=== PATIENT | male | born 1955 | race Caucasian/White ===

== ENCOUNTER → 2023-12-07 13:04 | Outpatient (CLI) | payer BC, SELFPAY | PROVIDERS: PCP Physician Assistant; Visit Provider Physician Assistant | DX: J02.9 Acute pharyngitis, unspecified (principal) | CPT/HCPCS: 87070 ==

== ENCOUNTER 2023-12-18 03:51 | Inpatient (IN) | payer BC, SELFPAY ==
[2023-12-18] VITALS (27 sets, daily range): BP systolic 114–174; BP diastolic 72–98; PULSE 59–89; RESP 15–18; TEMP 36.6; O2SAT 89–100; BMI 29.8
--- NOTE | 2023-12-18 03:58 | ED.GENADULT ---
HPI - General Adult <Ramon Escobar MD - Last Filed: 12/19/23 02:48> General Chief complaint: Altered Mental Status Stated complaint: AMS Time Seen by Provider: 12/18/23 03:55 History of Present Illness HPI narrative: 68-year-old male driving slowly, was trailed by police, eventually was stopped, seemed confused to Police, Breathalyzer negative, EMS called, transferred here for further evaluation of confusion. Patient denies drug or alcohol use. Patient states that he has been up since 4:00 a.m. yesterday working on his computer (over 24 hours), and then was driving, got disoriented. Denies similar symptoms before. No new medications, no change in medications. No shaking seizure activity, no incontinence of urine or stool. No focal weakness to face arm or leg. Numbness or tingling symptoms. No visual complaints. No pain to head, neck, chest, abdomen and pelvis, upper extremities, lower extremities. Related Data Home Medications Medication Instructions Recorded Confirmed atenolol 25 mg tablet 25 mg PO DAILY 12/07/23 12/18/23 atorvastatin 80 mg tablet 80 mg PO DAILY 12/07/23 12/18/23 bupropion HCl 150 mg 24 hr tablet, 150 mg PO QAM 12/07/23 12/18/23 extended release chlorthalidone 25 mg tablet 25 mg PO DAILY 12/07/23 12/18/23 citalopram 20 mg tablet 20 mg PO DAILY 12/07/23 12/18/23 lisinopril 40 mg tablet 40 mg PO DAILY 12/07/23 12/18/23 pramipexole 1 mg tablet 1 mg PO BEDTIME 12/07/23 12/18/23 Previous Rx's Medication Instructions Recorded valacyclovir 1 gram tablet 1,000 mg PO TID 10 days #30 tabs 12/20/23 Allergies Allergy/AdvReac Type Severity Reaction Status Date / Time No Known Drug Allergies Allergy Unverified 12/07/23 12:46 Review of Systems <Ramon Escobar MD - Last Filed: 12/19/23 02:48> Review of Systems Narrative: per HPI Patient History <Ramon Escobar MD - Last Filed: 12/19/23 02:48> Social History household members: spouse Smoking Status: Never smoker alcohol intake: never Smoking Status: Never smoker Exam <Ramon Escobar MD - Last Filed: 12/19/23 02:48> Initial Vital Signs Initial Vital Signs: Vital Signs Temperature 97.9 F 12/18/23 03:55 Pulse Rate 66 12/18/23 03:55 Respiratory Rate 15 12/18/23 03:55 Blood Pressure 151/86 H 12/18/23 03:55 Pulse Oximetry 100 12/18/23 03:55 Oxygen Delivery Method Room Air 12/18/23 03:55 Const General: cooperative HENCA Head: normocephalic and atraumatic Ears: TM's normal bilaterally Face and sinus: face symmetric Mouth: moist mucous membranes Eyes Eyelids: eyelids normal Conjunctivae: conjunctivae normal Sclera: sclerae normal Pupils: PERRL EOM: EOM intact bilaterally Neck Neck: normal visual inspection Chest Chest: normal inspection of the chest Resp Effort & Inspection: normal respiratory effort, able to speak in complete sentences, no respiratory distress and no use of accessory muscles Auscultation: clear to auscultation bilaterally, no rales, no rhonchi and no wheezes Cardio Rate: regular rate Rhythm: regular rhythm Heart Sounds: no click, no gallops, no murmurs and no rubs Pulses: normal peripheral pulses GI Inspection: non-distended Palpation: soft, No guarding and No tender Back/Spine/Pelvis Back: No CVA tenderness Cervical Spine: No pain with cervical ROM Skin General: no rashes or lesions noted, No jaundice and No petechiae Neuro General: patient alert, gait normal and no focal motor deficits Speech: speech normal Extrem General: no pedal edema Psych Appearance: well kempt Mental Status: mental status grossly normal Attitude: cooperative <Arlin Henley DO - Last Filed: 12/24/23 09:22> Initial Vital Signs Initial Vital Signs: Vital Signs Temperature 97.9 F 12/18/23 03:55 Pulse Rate 12/18/23 03:55 Respiratory Rate 12/18/23 03:55 Blood Pressure 151/86 H 12/18/23 03:55 Pulse Oximetry 100 12/18/23 03:55 Oxygen Delivery Method Room Air 12/18/23 03:55 Procedures <Arlin Henley DO - Last Filed: 12/24/23 09:22> Lumbar Puncture Time of procedure: 11:25 Time Out Performed: Yes Patient Position: upright Skin Prep: 0.5% Chlorhexidine/Alcohol Local Anesthetic: lidocaine 2% Amount of anesthesia used (mL): 10 Spinal Needle Gauge: 22G Interspace Used: L4-L5 Complications: Need to have other Practitioner Attempt and unable to obtain CSF Course <Ramon Escobar MD - Last Filed: 12/19/23 02:48> Orders Ordered: Discontinued Medications Acetaminophen (Acetaminophen 325 Mg Tablet) 650 mg PO Q6H PRN PRN Reason: Fever/Mild Pain (1-3) Atenolol (Atenolol 25 Mg Tablet) 25 mg PO DAILY [facility] Last Admin: 12/20/23 08:53 Dose: 25 mg Documented By: Admin: 12/19/23 09:54 Dose: 25 mg Documented By: MM Atorvastatin Calcium (Atorvastatin 20 Mg Tablet) 80 mg PO DAILY [facility] Last Admin: 12/20/23 08:53 Dose: 80 mg Documented By: Admin: 12/19/23 09:55 Dose: 80 mg Documented By: MM Bupropion HCl (Bupropion Xl 150 Mg Tab) 150 mg PO DAILY [facility] Last Admin: 12/20/23 08:53 Dose: 150 mg Documented By: Admin: 12/19/23 09:55 Dose: 150 mg Documented By: MM Chlorthalidone (Chlorthalidone 25 Mg Tablet) 25 mg PO DAILY [facility] Last Admin: 12/20/23 08:53 Dose: 25 mg Documented By: Admin: 12/19/23 09:55 Dose: 25 mg Documented By: MM Citalopram Hydrobromide (Citalopram 10 Mg Tablet) 20 mg PO DAILY [facility] Last Admin: 12/20/23 08:53 Dose: 20 mg Documented By: Admin: 12/19/23 09:55 Dose: 20 mg Documented By: MM Dexamethasone (Dexamethasone 10 Mg/Ml Vial) 10 mg IV NOW ONE Stop: 12/18/23 11:58 Last Admin: 12/18/23 13:12 Dose: 10 mg Documented By: Heparin Sodium (Porcine) (Heparin 5,000 Unit/Ml Vial) 5,000 unit SUBCUT BID [facility] Last Admin: 12/20/23 08:53 Dose: 5,000 unit Documented By: Admin: 12/19/23 20:30 Dose: 5,000 unit Documented By: Admin: 12/19/23 08:30 Dose: 5,000 unit Documented By: Admin: 12/18/23 21:22 Dose: 5,000 unit Documented By: SRIDHAR Sodium Chloride (Normal Saline 0.9%) 1,000 mls @ 150 mls/hr IV CONT IMAN Last Infusion: 12/18/23 05:22 Dose: Infused Documented By: Infusion: 12/18/23 05:03 Dose: 999 mls/hr Documented By: Admin: 12/18/23 04:20 Dose: 150 mls/hr Documented By: AB Acyclovir 1,000 mg/ Dextrose 250 mls @ 250 mls/hr IV NOW ONE Stop: 12/18/23 11:58 Last Infusion: 12/18/23 14:49 Dose: Infused Documented By: Admin: 12/18/23 13:12 Dose: 250 mls/hr Documented By: Ceftriaxone Sodium 2,000 mg/ (Sodium Chloride) 100 mls @ 200 mls/hr IV Q24H IMAN Last Infusion: 12/18/23 15:17 Dose: Infused Documented By: Admin: 12/18/23 14:54 Dose: 200 mls/hr Documented By: Vancomycin HCl/Dextrose (Vancomycin) 2,000 mg in 400 mls @ 200 mls/hr IV NOW ONE Stop: 12/18/23 14:01 Last Admin: 12/18/23 15:18 Dose: Not Given Documented By: Ampicillin Sodium 2,000 mg/ (Sodium Chloride) 100 mls @ 200 mls/hr IV NOW ONE Stop: 12/18/23 11:58 Last Admin: 12/18/23 15:18 Dose: Not Given Documented By: Sodium Chloride (Normal Saline 0.9%) 1,000 mls @ 100 mls/hr IV CONT IMAN Last Admin: 12/20/23 00:23 Dose: 100 mls/hr Documented By: Infusion: 12/20/23 00:23 Dose: Infused Documented By: Admin: 12/19/23 12:06 Dose: 100 mls/hr Documented By: Infusion: 12/19/23 10:26 Dose: Infused Documented By: Admin: 12/19/23 00:26 Dose: 100 mls/hr Documented By: Infusion: 12/19/23 00:26 Dose: Infused Documented By: Admin: 12/18/23 14:54 Dose: 100 mls/hr Documented By: Acyclovir 1,000 mg/ Dextrose 250 mls @ 250 mls/hr IV Q8H [facility] Last Infusion: 12/20/23 06:35 Dose: Infused Documented By: Admin: 12/20/23 04:54 Dose: 250 mls/hr Documented By: Infusion: 12/19/23 21:35 Dose: Infused Documented By: Admin: 12/19/23 20:30 Dose: 250 mls/hr Documented By: Infusion: 12/19/23 13:05 Dose: Infused Documented By: Admin: 12/19/23 12:05 Dose: 250 mls/hr Documented By: Infusion: 12/19/23 08:31 Dose: Infused Documented By: Admin: 12/19/23 05:17 Dose: 250 mls/hr Documented By: Infusion: 12/18/23 22:22 Dose: Infused Documented By: Admin: 12/18/23 21:22 Dose: 250 mls/hr Documented By: SRIDHAR Lisinopril (Lisinopril 20 Mg Tablet) 40 mg PO DAILY [facility] Last Admin: 12/20/23 08:53 Dose: 40 mg Documented By: Admin: 12/19/23 09:55 Dose: 40 mg Documented By: SIVA Lorazepam (Lorazepam 2 Mg/Ml Inj) 0.5 mg IV NOW ONE Stop: 12/18/23 09:19 Last Admin: 12/18/23 09:24 Dose: 0.5 mg Documented By: ZENAIDA Naloxone HCl (Naloxone 0.4 Mg/Ml Vial) 0.2 mg IV Q2MIN PRN PRN Reason: Opiate Reversal Non-Formulary Medication (Pramipexole) 1 mg PO BEDTIME [facility] Potassium Chloride (Potassium Chloride 20 Meq/15 Ml Udc) 40 meq PO NOW ONE Stop: 12/18/23 05:34 Last Admin: 12/18/23 06:39 Dose: 40 meq Documented By: ARNALDO Potassium Chloride (Potassium Chloride 20 Meq Tab) 40 meq PO NOW ONE Stop: 12/20/23 10:46 Last Admin: 12/20/23 13:47 Dose: Not Given Documented By: SIVA Pramipexole Dihydrochloride (Pramipexole 0.25 Mg Tablet) 1 mg PO BEDTIME [facility] Pramipexole Dihydrochloride (Pramipexole 0.25 Mg Tablet) 1 mg PO BEDTIME [facility] Last Admin: 12/19/23 20:31 Dose: 1 mg Documented By: Admin: 12/19/23 00:26 Dose: 1 mg Documented By: SRIDHAR Vital Signs Vital signs: Vital Signs - 8 hr 12/18/23 08:57 12/18/23 09:00 12/18/23 09:44 Pulse Rate 71 71 Respiratory Rate Blood Pressure Pulse Oximetry 92 99 95 Oxygen Delivery Method 12/18/23 09:45 12/18/23 09:45 12/18/23 10:03 Pulse Rate 64 73 Respiratory Rate 18 Blood Pressure 133/93 H 137/77 Pulse Oximetry 100 97 Oxygen Delivery Method Room Air <Arlin Henley, DO - Last Filed: 12/24/23 09:22> Orders Ordered: Discontinued Medications Acetaminophen (Acetaminophen 325 Mg Tablet) 650 mg PO Q6H PRN PRN Reason: Fever/Mild Pain (1-3) Atenolol (Atenolol 25 Mg Tablet) 25 mg PO DAILY [facility] Last Admin: 12/20/23 08:53 Dose: 25 mg Documented By: Admin: 12/19/23 09:54 Dose: 25 mg Documented By: SIVA Atorvastatin Calcium (Atorvastatin 20 Mg Tablet) 80 mg PO DAILY [facility] Last Admin: 12/20/23 08:53 Dose: 80 mg Documented By: Admin: 12/19/23 09:55 Dose: 80 mg Documented By: MM Bupropion HCl (Bupropion Xl 150 Mg Tab) 150 mg PO DAILY [facility] Last Admin: 12/20/23 08:53 Dose: 150 mg Documented By: Admin: 12/19/23 09:55 Dose: 150 mg Documented By: MM Chlorthalidone (Chlorthalidone 25 Mg Tablet) 25 mg PO DAILY [facility] Last Admin: 12/20/23 08:53 Dose: 25 mg Documented By: Admin: 12/19/23 09:55 Dose: 25 mg Documented By: MM Citalopram Hydrobromide (Citalopram 10 Mg Tablet) 20 mg PO DAILY [facility] Last Admin: 12/20/23 08:53 Dose: 20 mg Documented By: Admin: 12/19/23 09:55 Dose: 20 mg Documented By: MM Dexamethasone (Dexamethasone 10 Mg/Ml Vial) 10 mg IV NOW ONE Stop: 12/18/23 11:58 Last Admin: 12/18/23 13:12 Dose: 10 mg Documented By: Heparin Sodium (Porcine) (Heparin 5,000 Unit/Ml Vial) 5,000 unit SUBCUT BID [facility] Last Admin: 12/20/23 08:53 Dose: 5,000 unit Documented By: Admin: 12/19/23 20:30 Dose: 5,000 unit Documented By: Admin: 12/19/23 08:30 Dose: 5,000 unit Documented By: Admin: 12/18/23 21:22 Dose: 5,000 unit Documented By: SRIDHAR Sodium Chloride (Normal Saline 0.9%) 1,000 mls @ 150 mls/hr IV CONT [facility] Last Infusion: 12/18/23 05:22 Dose: Infused Documented By: Infusion: 12/18/23 05:03 Dose: 999 mls/hr Documented By: Admin: 12/18/23 04:20 Dose: 150 mls/hr Documented By: AB Acyclovir 1,000 mg/ Dextrose 250 mls @ 250 mls/hr IV NOW ONE Stop: 12/18/23 11:58 Last Infusion: 12/18/23 14:49 Dose: Infused Documented By: Admin: 12/18/23 13:12 Dose: 250 mls/hr Documented By: Ceftriaxone Sodium 2,000 mg/ (Sodium Chloride) 100 mls @ 200 mls/hr IV Q24H [facility] Last Infusion: 12/18/23 15:17 Dose: Infused Documented By: Admin: 12/18/23 14:54 Dose: 200 mls/hr Documented By: Vancomycin HCl/Dextrose (Vancomycin) 2,000 mg in 400 mls @ 200 mls/hr IV NOW ONE Stop: 12/18/23 14:01 Last Admin: 12/18/23 15:18 Dose: Not Given Documented By: Ampicillin Sodium 2,000 mg/ (Sodium Chloride) 100 mls @ 200 mls/hr IV NOW ONE Stop: 12/18/23 11:58 Last Admin: 12/18/23 15:18 Dose: Not Given Documented By: Sodium Chloride (Normal Saline 0.9%) 1,000 mls @ 100 mls/hr IV CONT [facility] Last Admin: 12/20/23 00:23 Dose: 100 mls/hr Documented By: Infusion: 12/20/23 00:23 Dose: Infused Documented By: Admin: 12/19/23 12:06 Dose: 100 mls/hr Documented By: Infusion: 12/19/23 10:26 Dose: Infused Documented By: Admin: 12/19/23 00:26 Dose: 100 mls/hr Documented By: Infusion: 12/19/23 00:26 Dose: Infused Documented By: Admin: 12/18/23 14:54 Dose: 100 mls/hr Documented By: Acyclovir 1,000 mg/ Dextrose 250 mls @ 250 mls/hr IV Q8H [facility] Last Infusion: 12/20/23 06:35 Dose: Infused Documented By: Admin: 12/20/23 04:54 Dose: 250 mls/hr Documented By: Infusion: 12/19/23 21:35 Dose: Infused Documented By: Admin: 12/19/23 20:30 Dose: 250 mls/hr Documented By: Infusion: 12/19/23 13:05 Dose: Infused Documented By: Admin: 12/19/23 12:05 Dose: 250 mls/hr Documented By: Infusion: 12/19/23 08:31 Dose: Infused Documented By: Admin: 12/19/23 05:17 Dose: 250 mls/hr Documented By: Infusion: 12/18/23 22:22 Dose: Infused Documented By: Admin: 12/18/23 21:22 Dose: 250 mls/hr Documented By: SRIDHAR Lisinopril (Lisinopril 20 Mg Tablet) 40 mg PO DAILY [facility] Last Admin: 12/20/23 08:53 Dose: 40 mg Documented By: Admin: 12/19/23 09:55 Dose: 40 mg Documented By: SIVA Lorazepam (Lorazepam 2 Mg/Ml Inj) 0.5 mg IV NOW ONE Stop: 12/18/23 09:19 Last Admin: 12/18/23 09:24 Dose: 0.5 mg Documented By: ZENAIDA Naloxone HCl (Naloxone 0.4 Mg/Ml Vial) 0.2 mg IV Q2MIN PRN PRN Reason: Opiate Reversal Non-Formulary Medication (Pramipexole) 1 mg PO BEDTIME [facility] Potassium Chloride (Potassium Chloride 20 Meq/15 Ml Udc) 40 meq PO NOW ONE Stop: 12/18/23 05:34 Last Admin: 12/18/23 06:39 Dose: 40 meq Documented By: KD Potassium Chloride (Potassium Chloride 20 Meq Tab) 40 meq PO NOW ONE Stop: 12/20/23 10:46 Last Admin: 12/20/23 13:47 Dose: Not Given Documented By: MM Pramipexole Dihydrochloride (Pramipexole 0.25 Mg Tablet) 1 mg PO BEDTIME IMAN Pramipexole Dihydrochloride (Pramipexole 0.25 Mg Tablet) 1 mg PO BEDTIME IM[facility] Last Admin: 12/19/23 20:31 Dose: 1 mg Documented By: Admin: 12/19/23 00:26 Dose: 1 mg Documented By: SRIDHAR Vital Signs Vital signs: Vital Signs - 8 hr 12/18/23 08:57 12/18/23 09:00 12/18/23 09:44 Pulse Rate 71 71 Respiratory Rate Blood Pressure Pulse Oximetry 92 99 95 Oxygen Delivery Method 12/18/23 09:45 12/18/23 09:45 12/18/23 10:03 Pulse Rate 64 73 Respiratory Rate 18 Blood Pressure 133/93 H 137/77 Pulse Oximetry 100 97 Oxygen Delivery Method Room Air Medical Decision Making <Ramon Escobar MD - Last Filed: 12/19/23 02:48> Lab Data Lab results reviewed: Yes I reviewed the patient's lab results. 12/20/23 03:56 12/20/23 03:56 Labs: Lab Results 12/18/23 12/18/23 12/18/23 Range/Units 03:47 04:29 04:34 WBC 10.9 (4.5-11.0) X10^3/uL RBC 4.32 L (4.5-5.9) X10^6/uL Hgb 14.3 (13.5-17.5) g/dL Hct 40.4 L (41-53) % MCV 93.6 (80-100) fL MCH 33.2 (26-34) PG MCHC 35.5 (30-36) % RDW 13.3 (11.6-14.8) % Plt Count 390 (150-400) X10^3/uL Neut % (Auto) 78.9 H (50-75) % Lymph % (Auto) 13.3 L (25-40) % [place] % (Auto) 6.9 (3-14) % Eos % (Auto) 0.3 L (2-4) % Baso % (Auto) 0.6 (0-2) % Neut # (Auto) 8600 H (5884-9730) /uL Lymph # (Auto) 1400 (8823-8101) /uL [place] # (Auto) 800 (0-900) /uL Eos # (Auto) 0 (0-450) /uL Baso # (Auto) 100 (0-100) /uL PT 11.7 (9.4-12.5) SECONDS INR 1.0 (0.9-1.3) APTT 35 (25.1-36.5) SECONDS Sodium 133 L (137-145) mmol/L Potassium 3.3 L (3.4-5.1) mmol/L Chloride 98 (98-107) mmol/L Carbon Dioxide 28 (22-32) mmol/L BUN 17 (9-20) mg/dL Creatinine 0.93 (0.66-1.25) mg/dL Estimated GFR > 60 (>60) mL/min BUN/Creatinine Ratio 18.3 (6-22) Glucose 111 H (80-110) mg/dL Lactate 1.0 (0.7-2.1) mmol/L Calcium 9.2 (8.4-10.2) mg/dL Total Bilirubin 1.1 (0.2-1.3) mg/dL AST 53 (17-59) IU/L ALT 51 H (<50) IU/L Alkaline Phosphatase 103 (38-126) U/L Ammonia < 9 L (9-30) umol/L Total Protein 7.8 (6.3-8.2) g/dL Albumin 4.7 (3.5-5.0) g/dL Globulin 3.1 (1.7-4.1) g/dL Albumin/Globulin Ratio 1.5 (1.0-2.8) TSH 6.89 H (0.47-4.68) uIU/mL Free T4 1.08 (0.78-2.19) ng/dL Prolactin 14.7 (3.7-17.9) ng/mL Urine Color Urine Appearance Urine pH (4.5-8.0) Ur Specific [place] (1.000-1.035) Urine Protein (Negative) Urine Glucose (UA) (Negative) g/dL Urine Ketones (NEGATIVE) Urine Occult Blood (Negative) Urine Nitrate (Negative) Urine Bilirubin (NEGATIVE) Urine Urobilinogen (0.2) E.U./dL Ur Leukocyte Esterase (NEGATIVE) Urine RBC (0-5/HPF) Urine WBC (0-5/HPF) Ur Squamous Epith Cells (0-5/HPF) Urine Bacteria (None) Ur Culture Indicated? Vol Urine Centrifuged Salicylates < 1.0 (<20) mg/dL U Opiates 300ng/mL cut (Negative) Ur Oxycodone Screen (Negative) Urine Methadone Screen (Negative) Acetaminophen < 10 (10-30) ug/mL Ur Barbiturates Screen (Negative) U Tricyclic Antidepress (Negative) Ur Phencyclidine Scrn (Negative) Ur Amphetamines Screen (Negative) U Methamphetamines Scrn (Negative) Ur MDMA Scrn (Ecstasy) (Negative) U Benzodiazepines Scrn (Negative) Urine Cocaine Screen (Negative) U Marijuana (THC) Screen (Negative) Urine Specific [place] Ethyl Alcohol < 10 ( - 10) mg/dL Ur Creatinine 12/18/23 12/18/23 Range/Units 05:05 05:05 WBC (4.5-11.0) X10^3/uL RBC (4.5-5.9) X10^6/uL Hgb (13.5-17.5) g/dL Hct (41-53) % MCV (80-100) fL MCH (26-34) PG MCHC (30-36) % RDW (11.6-14.8) % Plt Count (150-400) X10^3/uL Neut % (Auto) (50-75) % Lymph % (Auto) (25-40) % [place] % (Auto) (3-14) % Eos % (Auto) (2-4) % Baso % (Auto) (0-2) % Neut # (Auto) (1392-2081) /uL Lymph # (Auto) (3946-1942) /uL [place] # (Auto) (0-900) /uL Eos # (Auto) (0-450) /uL Baso # (Auto) (0-100) /uL PT (9.4-12.5) SECONDS INR (0.9-1.3) APTT (25.1-36.5) SECONDS Sodium (137-145) mmol/L Potassium (3.4-5.1) mmol/L Chloride (98-107) mmol/L Carbon Dioxide (22-32) mmol/L BUN (9-20) mg/dL Creatinine (0.66-1.25) mg/dL Estimated GFR (>60) mL/min BUN/Creatinine Ratio (6-22) Glucose (80-110) mg/dL Lactate (0.7-2.1) mmol/L Calcium (8.4-10.2) mg/dL Total Bilirubin (0.2-1.3) mg/dL AST (17-59) IU/L ALT (<50) IU/L Alkaline Phosphatase (38-126) U/L Ammonia (9-30) umol/L Total Protein (6.3-8.2) g/dL Albumin (3.5-5.0) g/dL Globulin (1.7-4.1) g/dL Albumin/Globulin Ratio (1.0-2.8) TSH (0.47-4.68) uIU/mL Free T4 (0.78-2.19) ng/dL Prolactin (3.7-17.9) ng/mL Urine Color Yellow Urine Appearance Clear Urine pH 7.5 TNP (4.5-8.0) Ur Specific [place] 1.010 (1.000-1.035) Urine Protein Negative (Negative) Urine Glucose (UA) Negative (Negative) g/dL Urine Ketones Negative (NEGATIVE) Urine Occult Blood Negative (Negative) Urine Nitrate Negative (Negative) Urine Bilirubin Negative (NEGATIVE) Urine Urobilinogen 1.0 (0.2) E.U./dL Ur Leukocyte Esterase Negative (NEGATIVE) Urine RBC None seen (0-5/HPF) Urine WBC None seen (0-5/HPF) Ur Squamous Epith Cells None seen (0-5/HPF) Urine Bacteria None seen (None) Ur Culture Indicated? Cult not indicated Vol Urine Centrifuged 10ml (spun) Salicylates (<20) mg/dL U Opiates 300ng/mL cut Negative (Negative) Ur Oxycodone Screen Negative (Negative) Urine Methadone Screen Negative (Negative) Acetaminophen (10-30) ug/mL Ur Barbiturates Screen Negative (Negative) U Tricyclic Antidepress Negative (Negative) Ur Phencyclidine Scrn Negative (Negative) Ur Amphetamines Screen Negative (Negative) U Methamphetamines Scrn Negative (Negative) Ur MDMA Scrn (Ecstasy) Negative (Negative) U Benzodiazepines Scrn Negative (Negative) Urine Cocaine Screen Negative (Negative) U Marijuana (THC) Screen Negative (Negative) Urine Specific [place] TNP Ethyl Alcohol ( - 10) mg/dL Ur Creatinine TNP MDM Narrative Medical decision making narrative: 68-year-old male had been working on his computer, works from home, since 4:00 a.m. the previous night, up continuously for over 24 hours, apparently had some irregular driving that prompted police to pull him over, Breathalyzer reportedly negative, denied alcohol use, no history of weakness, no seizures, no prior strokes. No PMHx of psychiatric or dementia or substance abuse disorders on triage notes. Studies including CBC, CMP, urinalysis, ethanol level, toxicology screening, UDS, TSH, all negative. CT head study requested. 0540, patient likely might have had altered mental status due to fatigue having been up working for more than [address] head results pending, could consider further workup to include MRI of the brain to look for stroke. He does not want to do this, but he would like to stay for the CT results. In the meantime he will sleep so that if he is discharged he can drive safely to his local home in [place]. No family present in ED. CT head noncontrast. Impressions: ?No acute intracranial findings. ? See tele radiology report Oral potassium taken for low serum potassium, not likely cause of his confusion. Did get some sleep here in the emergency department. Improved, ambulation trial adequate, seems alert. We discussed further imaging MRI of the brain to look for stroke-like symptoms, declined. Symptoms most consistent with extreme fatigue due to continuous working for over 24 hours, as possible cause of his confusion, advised not to have such prolonged times without sleep without break. He seems alert now, wishes to drive himself short distance home in the local [place] area. 0630, patient was not in room but his backpack and keys were in room, and was found to be walking around the [facility] area by security, after nursing reported that he was walking in the adjacent hospital parking area trying to open car doors and had alerted security. He was led back to the emergency department without incident, non combative, does not seem to recall the event. We will obtain CT head and neck vessels, MRI brain without contrast. He is agreeable to doing these additional tests 0700, CTA head and neck vessel study has been performed, results pending. MRI brain noncontrast study to be performed. Signed out to oncoming ED shift physician Dr. Henley 12/18/2023 0756: Dr. Henley patient signed out to myself patient seen and evaluated by myself. Patient's labs reviewed TSH is elevated T4 was added on and is 1.08, no other acute changes lab work that would be clear source for patient's confusion. Patient's head CT was negative. Dr. Escobar had added on a CT angio which had some motion artifact but no clear high-grade stenosis or large vessel was identified there was a possible 4 mm anterior communicating artery aneurysm or infundibulum. Attempting to obtain MR. Patient received fluids 150 mL per hour and potassium placement. Review of chart notes that he had visit for sore throat and was reportedly COVID negative patient was strep negative but was given prescription for amoxicillin and prednisone 10 mg for 5 days. This is fairly low dose known but could conceivably cause altered mental status. No contact information for family noted patient's demographics. Patient does not appear confused but does not appear to have any other acute neurologic changes, he has been afebrile, no signs of sepsis. Patient had reported that he had been up 24 hours on his computer for work to Dr. Escobar. Spoke with patient's brother, he states patient has had 1 prior episode remotely or they thought he had some form of serotonin syndrome or issue with his medications. Patient had thought he had take an extra dose. This was accomplished years ago he was reported to be altered and was admitted for a couple days. Brother states he has otherwise been appropriate last spoke with him a week ago but was texting him as recently as Wednesday and states that is seemed normal. 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 His brother is his main emergency contact, brother lives in [place]. Brain MR has not negative for acute change. Patient did have to receive Ativan on order to receive MRI he kept trying to crawl out of the machine. Spoke with Dr. Pichardo, hospitalist. Asked for LP to evaluate for encephalitis but is happy to accept. Unsuccessful with the initial LP, anesthesia Dr. West contacted to attempt discussed with Dr. Pichardo we will go ahead and cover with acyclovir dexamethasone, meningitis is less likely but we will cover with antibiotic coverage as well. Dr. West was able to obtain sample CSF for CSF studies <Arlin Henley, DO - Last Filed: 12/24/23 09:22> Lab Data Labs: Lab Results 12/18/23 12/18/23 12/18/23 Range/Units 03:47 04:29 04:34 WBC 10.9 (4.5-11.0) X10^3/uL RBC 4.32 L (4.5-5.9) X10^6/uL Hgb 14.3 (13.5-17.5) g/dL Hct 40.4 L (41-53) % MCV 93.6 (80-100) fL MCH 33.2 (26-34) PG MCHC 35.5 (30-36) % RDW 13.3 (11.6-14.8) % Plt Count 390 (150-400) X10^3/uL Neut % (Auto) 78.9 H (50-75) % Lymph % (Auto) 13.3 L (25-40) % [place] % (Auto) 6.9 (3-14) % Eos % (Auto) 0.3 L (2-4) % Baso % (Auto) 0.6 (0-2) % Neut # (Auto) 8600 H (3540-1482) /uL Lymph # (Auto) 1400 (2852-0829) /uL [place] # (Auto) 800 (0-900) /uL Eos # (Auto) 0 (0-450) /uL Baso # (Auto) 100 (0-100) /uL PT 11.7 (9.4-12.5) SECONDS INR 1.0 (0.9-1.3) APTT 35 (25.1-36.5) SECONDS Sodium 133 L (137-145) mmol/L Potassium 3.3 L (3.4-5.1) mmol/L Chloride 98 (98-107) mmol/L Carbon Dioxide 28 (22-32) mmol/L BUN 17 (9-20) mg/dL Creatinine 0.93 (0.66-1.25) mg/dL Estimated GFR > 60 (>60) mL/min BUN/Creatinine Ratio 18.3 (6-22) Glucose 111 H (80-110) mg/dL Lactate 1.0 (0.7-2.1) mmol/L Calcium 9.2 (8.4-10.2) mg/dL Total Bilirubin 1.1 (0.2-1.3) mg/dL AST 53 (17-59) IU/L ALT 51 H (<50) IU/L Alkaline Phosphatase 103 (38-126) U/L Ammonia < 9 L (9-30) umol/L Total Protein 7.8 (6.3-8.2) g/dL Albumin 4.7 (3.5-5.0) g/dL Globulin 3.1 (1.7-4.1) g/dL Albumin/Globulin Ratio 1.5 (1.0-2.8) TSH 6.89 H (0.47-4.68) uIU/mL Free T4 1.08 (0.78-2.19) ng/dL Prolactin 14.7 (3.7-17.9) ng/mL Urine Color Urine Appearance Urine pH (4.5-8.0) Ur Specific [place] (1.000-1.035) Urine Protein (Negative) Urine Glucose (UA) (Negative) g/dL Urine Ketones (NEGATIVE) Urine Occult Blood (Negative) Urine Nitrate (Negative) Urine Bilirubin (NEGATIVE) Urine Urobilinogen (0.2) E.U./dL Ur Leukocyte Esterase (NEGATIVE) Urine RBC (0-5/HPF) Urine WBC (0-5/HPF) Ur Squamous Epith Cells (0-5/HPF) Urine Bacteria (None) Ur Culture Indicated? Vol Urine Centrifuged Salicylates < 1.0 (<20) mg/dL U Opiates 300ng/mL cut (Negative) Ur Oxycodone Screen (Negative) Urine Methadone Screen (Negative) Acetaminophen < 10 (10-30) ug/mL Ur Barbiturates Screen (Negative) U Tricyclic Antidepress (Negative) Ur Phencyclidine Scrn (Negative) Ur Amphetamines Screen (Negative) U Methamphetamines Scrn (Negative) Ur MDMA Scrn (Ecstasy) (Negative) U Benzodiazepines Scrn (Negative) Urine Cocaine Screen (Negative) U Marijuana (THC) Screen (Negative) Urine Specific [place] Ethyl Alcohol < 10 ( - 10) mg/dL Ur Creatinine 12/18/23 12/18/23 Range/Units 05:05 05:05 WBC (4.5-11.0) X10^3/uL RBC (4.5-5.9) X10^6/uL Hgb (13.5-17.5) g/dL Hct (41-53) % MCV (80-100) fL MCH (26-34) PG MCHC (30-36) % RDW (11.6-14.8) % Plt Count (150-400) X10^3/uL Neut % (Auto) (50-75) % Lymph % (Auto) (25-40) % [place] % (Auto) (3-14) % Eos % (Auto) (2-4) % Baso % (Auto) (0-2) % Neut # (Auto) (4377-7587) /uL Lymph # (Auto) (3528-4496) /uL [place] # (Auto) (0-900) /uL Eos # (Auto) (0-450) /uL Baso # (Auto) (0-100) /uL PT (9.4-12.5) SECONDS INR (0.9-1.3) APTT (25.1-36.5) SECONDS Sodium (137-145) mmol/L Potassium (3.4-5.1) mmol/L Chloride (98-107) mmol/L Carbon Dioxide (22-32) mmol/L BUN (9-20) mg/dL Creatinine (0.66-1.25) mg/dL Estimated GFR (>60) mL/min BUN/Creatinine Ratio (6-22) Glucose (80-110) mg/dL Lactate (0.7-2.1) mmol/L Calcium (8.4-10.2) mg/dL Total Bilirubin (0.2-1.3) mg/dL AST (17-59) IU/L ALT (<50) IU/L Alkaline Phosphatase (38-126) U/L Ammonia (9-30) umol/L Total Protein (6.3-8.2) g/dL Albumin (3.5-5.0) g/dL Globulin (1.7-4.1) g/dL Albumin/Globulin Ratio (1.0-2.8) TSH (0.47-4.68) uIU/mL Free T4 (0.78-2.19) ng/dL Prolactin (3.7-17.9) ng/mL Urine Color Yellow Urine Appearance Clear Urine pH 7.5 TNP (4.5-8.0) Ur Specific [place] 1.010 (1.000-1.035) Urine Protein Negative (Negative) Urine Glucose (UA) Negative (Negative) g/dL Urine Ketones Negative (NEGATIVE) Urine Occult Blood Negative (Negative) Urine Nitrate Negative (Negative) Urine Bilirubin Negative (NEGATIVE) Urine Urobilinogen 1.0 (0.2) E.U./dL Ur Leukocyte Esterase Negative (NEGATIVE) Urine RBC None seen (0-5/HPF) Urine WBC None seen (0-5/HPF) Ur Squamous Epith Cells None seen (0-5/HPF) Urine Bacteria None seen (None) Ur Culture Indicated? Cult not indicated Vol Urine Centrifuged 10ml (spun) Salicylates (<20) mg/dL U Opiates 300ng/mL cut Negative (Negative) Ur Oxycodone Screen Negative (Negative) Urine Methadone Screen Negative (Negative) Acetaminophen (10-30) ug/mL Ur Barbiturates Screen Negative (Negative) U Tricyclic Antidepress Negative (Negative) Ur Phencyclidine Scrn Negative (Negative) Ur Amphetamines Screen Negative (Negative) U Methamphetamines Scrn Negative (Negative) Ur MDMA Scrn (Ecstasy) Negative (Negative) U Benzodiazepines Scrn Negative (Negative) Urine Cocaine Screen Negative (Negative) U Marijuana (THC) Screen Negative (Negative) Urine Specific [place] TNP Ethyl Alcohol ( - 10) mg/dL Ur Creatinine TNP MDM Narrative Medical decision making narrative: 68-year-old male had been working on his computer, works from home, since 4:00 a.m. the previous night, up continuously for over 24 hours, apparently had some irregular driving that prompted police to pull him over, Breathalyzer reportedly negative, denied alcohol use, no history of weakness, no seizures, no prior strokes. No PMHx of psychiatric or dementia or substance abuse disorders on triage notes. Studies including CBC, CMP, urinalysis, ethanol level, toxicology screening, UDS, TSH, all negative. CT head study requested. 0540, patient likely might have had altered mental status due to fatigue having been up working for more than [address] head results pending, could consider further workup to include MRI of the brain to look for stroke. He does not want to do this, but he would like to stay for the CT results. In the meantime he will sleep so that if he is discharged he can drive safely to his local home in [place]. No family present in ED. CT head noncontrast. Impressions: ?No acute intracranial findings. ? See tele radiology report Oral potassium taken for low serum potassium, not likely cause of his confusion. Did get some sleep here in the emergency department. Improved, ambulation trial adequate, seems alert. We discussed further imaging MRI of the brain to look for stroke-like symptoms, declined. Symptoms most consistent with extreme fatigue due to continuous working for over 24 hours, as possible cause of his confusion, advised not to have such prolonged times without sleep without break. He seems alert now, wishes to drive himself short distance home in the local [facility]. 0630, patient was not in room but his backpack and keys were in room, and was found to be walking around the [facility] area by security, after nursing reported that he was walking in the adjacent hospital parking area trying to open car doors and had alerted security. He was led back to the emergency department without incident, non combative, does not seem to recall the event. We will obtain CT head and neck vessels, MRI brain without contrast. He is agreeable to doing these additional tests 0700, CTA head and neck vessel study has been performed, results pending. MRI brain noncontrast study to be performed. Signed out to [facility] ED shift physician Dr. Henley 12/18/2023 0756: Dr. Henley patient signed out to myself patient seen and evaluated by myself. Patient's labs reviewed TSH is elevated T4 was added on and is 1.08, no other acute changes lab work that would be clear source for patient's confusion. Patient's head CT was negative. Dr. Escobar had added on a CT angio which had some motion artifact but no clear high-grade stenosis or large vessel was identified there was a possible 4 mm anterior communicating artery aneurysm or infundibulum. Attempting to obtain MR. Patient received fluids 150 mL per hour and potassium placement. Review of chart notes that he had visit for sore throat and was reportedly COVID negative patient was strep negative but was given prescription for amoxicillin and prednisone 10 mg for 5 days. This is fairly low dose known but could conceivably cause altered mental status. No contact information for family noted patient's demographics. Patient does not appear confused but does not appear to have any other acute neurologic changes, he has been afebrile, no signs of sepsis. Patient had reported that he had been up 24 hours on his computer for work to Dr. Escobar. Spoke with patient's brother, he states patient has had 1 prior episode remotely or they thought he had some form of serotonin syndrome or issue with his medications. Patient had thought he had take an extra dose. This was accomplished years ago he was reported to be altered and was admitted for a couple days. Brother states he has otherwise been appropriate last spoke with him a week ago but was texting him as recently as Wednesday and states that is seemed normal. 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 His brother is his main emergency contact, brother lives in [place]. Brain MR has not negative for acute change. Patient did have to receive Ativan on order to receive MRI he kept trying to crawl out of the machine. Spoke with Dr. Pichardo, hospitalist. Asked for LP to evaluate for encephalitis but is happy to accept. Unsuccessful with the initial LP, spoke with anesthesia Dr. West contacted to attempt discussed with Dr. Pichardo we will go ahead and cover with acyclovir dexamethasone, meningitis is less likely but we will cover with antibiotic coverage as well. Dr. West was kindly able to obtain sample CSF for CSF studies. CSF positive for HSV. Discharge Plan Departure Patient Disposition: Home Clinical Impression: Herpes encephalitis, Hypokalemia, Altered mental status
--- NOTE | 2023-12-18 03:59 | DI.CT.S_ITS ---
PROCEDURE: CT HEAD/BRAIN WO CON INDICATIONS: confusion TECHNIQUE: Noncontrast 4.5 mm thick angled axial sections acquired from the foramen magnum to the vertex, with coronal and sagittal reformats. For radiation dose reduction, the following was used: automated exposure control, adjustment of mA and/or kV according to patient size. COMPARISON: None. FINDINGS: Image quality: Diagnostic CSF spaces: Basal cisterns are patent. Lateral ventricles are symmetric. Volume: Vascular calcifications. Periventricular white matter disease is commonly seen with chronic microangiopathy. Volume loss is present. These findings are mild Brain: No intracranial hemorrhage. Delgado-white differentiation is grossly maintained. Craniofacial structures: No displaced fracture. Sinuses are clear. Orbits are intact. IMPRESSION: No acute intracranial pathology. Agree with prelim report. Dictated by: Jaime Paredes M.D. on 12/18/2023 at 7:43 Approved by: Jaime Paredes M.D. on 12/18/2023 at 7:43
[2023-12-18 04:11] LABS: Add Manual Diff / Slide Review NO; Basophils Absolute Auto 100 /uL (0-100); Basophils Percent Auto 0.6 % (0-2); Eosinophils Absolute Auto 0 /uL (0-450); Eosinophils Percent Auto 0.3 % (2-4); Hematocrit 40.4 % (41-53); Hemoglobin 14.3 g/dL (13.5-17.5); Lymphocytes Absolute Auto 1400 /uL (1100-4500); Lymphocytes Percent Auto 13.3 % (25-40); Mean Corpuscular HGB Conc 35.5 % (30-36); Mean Corpuscular Hemoglobin 33.2 PG (26-34); Mean Corpuscular Volume 93.6 fL (80-100); Monocytes Absolute Auto 800 /uL (0-900); Monocytes Percent Auto 6.9 % (3-14); Neutrophils Absolute Auto 8600 /uL (1500-7000); Neutrophils Percent Auto 78.9 % (50-75); Platelet Count 390 X10^3/uL (150-400); Red Blood Cell Count 4.32 X10^6/uL (4.5-5.9); Red Cell Distribution Width 13.3 % (11.6-14.8); White Blood Cell Count 10.9 X10^3/uL (4.5-11.0)
[2023-12-18 04:12] LABS: Prothrombin Time 11.7 SECONDS (9.4-12.5)
[2023-12-18 04:15] LABS: PTT Partial Thromboplastin Tim 35 SECONDS (25.1-36.5)
[2023-12-18 04:20] LABS: Acetaminophen < 10 ug/mL (10-30); Alanine Aminotransferase 51 IU/L (<50); Albumin 4.7 g/dL (3.5-5.0); Albumin Globulin Ratio 1.5 (1.0-2.8); Alkaline Phosphatase 103 U/L (38-126); Aspartate Aminotransferase 53 IU/L (17-59); BUN Creatinine Ratio 18.3 (6-22); Bilirubin Total 1.1 mg/dL (0.2-1.3); Blood Urea Nitrogen 17 mg/dL (9-20); Calcium 9.2 mg/dL (8.4-10.2); Carbon Dioxide 28 mmol/L (22-32); Chloride 98 mmol/L (98-107); Estimated Glomerular Filt Rate > 60 mL/min (>60); Ethanol (ETOH) < 10 mg/dL; Globulin 3.1 g/dL (1.7-4.1); Glucose 111 mg/dL (80-110); HEMOLYSIS < 15 (0-50); Potassium 3.3 mmol/L (3.4-5.1); Salicylate < 1.0 mg/dL (<20); Sodium 133 mmol/L (137-145); Total Protein 7.8 g/dL (6.3-8.2)
[2023-12-18] MEDS: SODIUM CHLORIDE 0.9% 1,000 ML 150 ML IV (04:20)
[2023-12-18 04:36] LABS: Prolactin 14.7 ng/mL (3.7-17.9)
[2023-12-18 04:46] LABS: Ammonia (NH3) < 9 umol/L (9-30)
[2023-12-18 05:16] LABS: Appearance Urine UA CLEAR; Bilirubin Urine UA NEGATIVE (NEGATIVE); Color Urine UA YELLOW; Glucose Urine UA NEGATIVE (Negative); Ketones Urine UA NEGATIVE (NEGATIVE); Leukocyte Esterase Urine UA NEGATIVE (NEGATIVE); Nitrite Urine UA NEGATIVE (Negative); Occult Blood Urine UA NEGATIVE (Negative); Protein Urine UA NEGATIVE (Negative); pH Urine UA 7.5 (4.5-8.0)
[2023-12-18 05:18] LABS: Thyroid Stimulating Hormone 6.89 uIU/mL (0.47-4.68)
[2023-12-18 05:22] LABS: Bacteria Urine None Seen; Culture Indicated Urine Cult Not Indicated; RBC Urine None Seen (0-5/HPF); Squamous Epithelial Cell Urine None Seen (0-5/HPF); UR Morphine/Opiate cutoff 300 Negative (Negative); Urine Amphetamines Negative (Negative); Urine Cocaine Negative (Negative); Urine Methamphetamines Negative (Negative); Urine Phencyclidine Negative (Negative); Urine Tetrahydrocannabinol Negative (Negative); Urine Volume 10mL (spun); WBC Urine None Seen (0-5/HPF)
[2023-12-18 05:23] LABS: Urine Barbiturates Negative (Negative); Urine Benzodiazepines Negative (Negative); Urine MDMA Negative (Negative); Urine Methadone Negative (Negative); Urine Oxycodone Negative (Negative); Urine Tricyclic Antidepressant Negative (Negative)
--- NOTE | 2023-12-18 05:24 | PC.NURSE ---
Pt answering all questions appropriately. Pt states that he is extremely exhausted due to being awake since 4 am today. He [place] the ferry from the [place] around 1 or 2 pm on 12/17/23 and went to [place]. Then he was going to go back to the [place] to rest prior to driving to [place] today 12/18/23.
[2023-12-18] MEDS: POTASSIUM CHLORIDE 20 MEQ/15 ML UDC 40 MEQ PO (06:39)
--- NOTE | 2023-12-18 06:46 | DI.CT.S_ITS ---
PROCEDURE: CT ANGIO HEAD AND NECK INDICATIONS: confusion TECHNIQUE: After the administration of intravenous contrast, 1 mm thick sections acquired from the aortic arch through the [place] of [place]. 3-dimensional vothndo-zlmzsqajv-rugpfmmapf (MIP) and/or volume rendering reformats were acquired of the central intracranial vasculature and neck separately. For radiation dose reduction, the following was used: automated exposure control, adjustment of mA and/or kV according to patient size. COMPARISON: None. FINDINGS: Image quality: Moderate motion artifact, particularly through the important regions at the lower face, skull base and ujwqyy-dp-Hhojwm HEAD ANGIOGRAPHY: Anterior circulation: ICAs: Yjro-sv-mggcfvdf cavernous calcifications ACAs: Normal and symmetric MCAs: Normal and symmetric AComm: Possible 4 mm aneurysm or infundibulum (). Venous sinuses: Not well assessed Posterior circulation: Dominance: Right Vertebral arteries: Xjcj-kd-fnuxopjx right intracranial atherosclerosis Basilar artery: Unremarkable PComms: No aneurysm radio performer: Unremarkable NECK ANGIOGRAPHY: Aortic arch and subclavian arteries: Mild calcifications CCAs: No stenosis, occlusion, or aneurysm. ICA origins (by NASCET criteria): Mild right and minimal left calcifications, no significant narrowing (under 30% ICAs: No stenosis, occlusion or aneurysm. ECAs: Origins are patent. Vertebral arteries: Unremarkable Soft tissues: No significant mass, aneurysm, or lymphadenopathy Lung apices: No pneumothorax Bones: No acute or suspicious abnormality. IMPRESSION: Very limited CT due to significant motion artifact, particularly through the important regions in the lower face, skull base and jxggro-pf-Rvbdje. No high-grade stenosis or large vessel occlusion identified. Possible 4 mm anterior communicating artery aneurysm or infundibulum. If there is high concern for infarct, consider MRI. Any quantitative measurements of stenosis were performed using NASCET criteria. Dictated by: Jaime Paredes M.D. on 12/18/2023 at 7:44 Approved by: Jaime Paredes M.D. on 12/18/2023 at 7:50
--- NOTE | 2023-12-18 06:46 | DI.MRI.S_ITS ---
PROCEDURE: MR HEAD/BRAIN WO CON INDICATIONS: confusion TECHNIQUE: Noncontrast axial T1 spin echo, axial T2 fast spin echo, sagittal and axial FLAIR, coronal T2 fast spin echo, axial gradient echo, axial diffusion and ADC through the brain. COMPARISON: [facility], CT, CT HEAD/BRAIN WO CON, 12/18/2023, 4:08. [facility], CT, CT ANGIO HEAD AND NECK, 12/18/2023, 7:03. FINDINGS: Image quality: Motion degraded CSF spaces: Basal cisterns are patent. Lateral ventricles are symmetric. Volume: Volume loss. Periventricular white matter signal abnormality most commonly seen with small vessel disease. These findings are mild Brain: No acute hemorrhage. No acute diffusion restriction Craniofacial structures: Unremarkable where visualized. Possible mucous cyst in the right maxillary IMPRESSION: No acute infarct. No hematoma. Motion degraded MRI. Dictated by: Jaime Paredes M.D. on 12/18/2023 at 10:20 Approved by: Jaime Paredes M.D. on 12/18/2023 at 10:22
[2023-12-18 08:25] LABS: Free T4, Direct Thyroxine 1.08 ng/dL (0.78-2.19)
--- NOTE | 2023-12-18 08:30 | PC.NURSE ---
patient is on the phone with his brother, he is staying in bed but is restless while in bed.
--- NOTE | 2023-12-18 08:31 | PC.NURSE ---
This RN and ED provider searched pt's back pack with pt's permission. Found pt's cell phone, pt was unable to open his cell phone without assistance. Pt was able to remember his passcode. This RN and ED provider were able to contact pt's brother, Nguyễn at [phone] with pt's permission. 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 Brother reports pt's presentation is far from his baseline, last spoke with pt about 1 week ago and texted patient on Wednesday. Pt report his brother, Nguyễn lives in [place], Nguyễn reports he actually lives in [place] and will be looking into flights to come see patient in the next few days. Nguyễn reports he is pt's only emergency contacted and can be contacted at any time.
[2023-12-18] MEDS: LORazepam 2 MG/ML INJ 0.5 MG IV (09:24)
--- NOTE | 2023-12-18 10:14 | PC.NURSE ---
Pt's belongings of 3 laptops, cell phone, chargers, passport, and wallet of credit cards and $4 placed in locked cabinet.
--- NOTE | 2023-12-18 10:17 | PC.NURSE ---
Pt reports feeling more like myself and recalls that his car battery and was low on gasoline early this morning. He was attempting to drive to [place] and decided to book a reservation at the [facility]. Pt did not make it to the [facility] and asked that I call them. I talked to Brittani at the [facility] and she states she will bring up the reservation with the structural manager who will follow up regarding possible refund. Pt notified.
--- NOTE | 2023-12-18 11:16 | PM.HP.1 ---
History of Present Illness History of Present Illness Date Patient Seen: 12/18/23 Time Patient Seen: 12:56 Chief complaint: AMS Narrative: From ED provider: 68-year-old male driving slowly, was trailed by police, eventually stopped, seemed confused, Breathalyzer negative, EMS called, transferred here for further evaluation of confusion. Patient denies drug or alcohol use. Patient states that he has been up since 4:00 a.m. yesterday working, and then was driving, got disoriented. Denies similar symptoms before. No new medications, no change in medications. No shaking seizure activity, no incontinence of urine or stool. No focal weakness to face arm or leg. Numbness or tingling symptoms. No visual complaints. No pain to head, neck, chest, abdomen and pelvis, upper extremities, lower extremities. In the ED a LP was performed: CSF pos WBC's and PCR positive for HSV 2. Acyclovir started. S: He was doing well but does noticed that he was confused and feels that he became confused sometime late last night. He lives in [facility] and took the [employer] over to republican. He was found driving around aimlessly by the police at 4:00 a.m.. He was brought to the hospital. There he left the emergency department wandered out towards the [facility] and again was confused. He denies headache. No recent fevers, chills or antecedent illness. He was otherwise healthy and takes no chronic medications. He drinks socially, denies any illicit drug use. He lives with a roommate in [facility]. He was started on acyclovir in the emergency department for encephalitis. [facility] Social History household members: spouse Smoking Status: Never smoker alcohol intake: never Meds Home Medications and Allergies Home Medications Medication Instructions Recorded Confirmed Type atenolol 25 mg tablet 25 mg PO DAILY 12/07/23 12/18/23 History atorvastatin 80 mg tablet 80 mg PO DAILY 12/07/23 12/18/23 History bupropion HCl 150 mg 24 hr tablet, 150 mg PO QAM 12/07/23 12/18/23 History extended release chlorthalidone 25 mg tablet 25 mg PO DAILY 12/07/23 12/18/23 History citalopram 20 mg tablet 20 mg PO DAILY 12/07/23 12/18/23 History lisinopril 40 mg tablet 40 mg PO DAILY 12/07/23 12/18/23 History pramipexole 1 mg tablet 1 mg PO ONCE PM 12/07/23 12/18/23 History Allergies Allergy/AdvReac Type Severity Reaction Status Date / Time No Known Drug Allergies Allergy Unverified 12/07/23 12:46 Review of Systems Review of Systems Narrative: All else reviewed and otherwise unremarkable except as noted in the history and physical. Exam Vital Signs (past 8 hours): - 12/18/23 03:55 12/18/23 04:00 12/18/23 04:02 Temperature 97.9 F Pulse Rate 66 68 Respiratory Rate 15 Blood Pressure 151/86 H 151/86 H Pulse Oximetry 100 97 Oxygen Delivery Method Room Air 12/18/23 04:02 12/18/23 04:14 12/18/23 04:14 Temperature Pulse Rate 65 59 L Respiratory Rate Blood Pressure 125/72 Pulse Oximetry 100 99 Oxygen Delivery Method 12/18/23 04:30 12/18/23 04:30 12/18/23 05:09 Temperature Pulse Rate 61 63 Respiratory Rate Blood Pressure 132/91 H Pulse Oximetry 100 96 Oxygen Delivery Method 12/18/23 05:21 12/18/23 05:21 12/18/23 06:44 Temperature Pulse Rate 71 71 Respiratory Rate Blood Pressure 143/91 H Pulse Oximetry 100 98 Oxygen Delivery Method Room Air Room Air 12/18/23 06:44 12/18/23 07:43 12/18/23 07:44 Temperature Pulse Rate Respiratory Rate Blood Pressure 170/98 H 162/83 H Pulse Oximetry 98 Oxygen Delivery Method 12/18/23 07:44 12/18/23 10:03 Temperature Pulse Rate 72 73 Respiratory Rate 18 Blood Pressure 137/77 Pulse Oximetry 100 97 Oxygen Delivery Method Room Air Oxygen Delivery Method Room Air Narrative Exam Narrative: NAD, alert and oriented to person, fluent speech, calm. Thinks it is 1944, notes he is in [place] been can not state that he is in the hospital. Normocephalic skull, EOMI, anicteric sclera, symmetric pupils. Oropharynx unremarkable, no droop. Neck supple, midline trachea, no adenopathy. Lungs clear, normal rate and effort. Heart regular, no murmur gallop or rub. Abdomen is soft, non distended and non tender. Extremities are free of edema. Skin is free of rash or lesions. Joints are not swollen or deformed. Judgment appears to be abnormal. Objective Imaging MRI - head: Radiologist's impression: IMPRESSION: No acute infarct. No hematoma. Motion degraded MRI. CT scan - head: Radiologist's impression: Very limited CT due to significant motion artifact, particularly through the important regions in the lower face, skull base and [id number]. No high-grade stenosis or large vessel occlusion identified. Possible 4 mm anterior communicating artery aneurysm or infundibulum. If there is high concern for infarct, consider MRI. Neg head CT Labs 12/18/23 03:47 12/18/23 03:47 Labs: Laboratory Results - last 24 hr 12/18/23 12/18/23 12/18/23 03:47 04:29 04:34 WBC 10.9 RBC 4.32 L Hgb 14.3 Hct 40.4 L MCV 93.6 MCH 33.2 MCHC 35.5 RDW 13.3 Plt Count 390 Neut % (Auto) 78.9 H Lymph % (Auto) 13.3 L [place] % (Auto) 6.9 Eos % (Auto) 0.3 L Baso % (Auto) 0.6 Neut # (Auto) 8600 H Lymph # (Auto) 1400 [place] # (Auto) 800 Eos # (Auto) 0 Baso # (Auto) 100 PT 11.7 INR 1.0 APTT 35 Sodium 133 L Potassium 3.3 L Chloride 98 Carbon Dioxide 28 BUN 17 Creatinine 0.93 Estimated GFR > 60 BUN/Creatinine Ratio 18.3 Glucose 111 H Lactate 1.0 Calcium 9.2 Total Bilirubin 1.1 AST 53 ALT 51 H Alkaline Phosphatase 103 Ammonia < 9 L Total Protein 7.8 Albumin 4.7 Globulin 3.1 Albumin/Globulin Ratio 1.5 TSH 6.89 H Free T4 1.08 Prolactin 14.7 Urine Color Urine Appearance Urine pH Ur Specific [place] Urine Protein Urine Glucose (UA) Urine Ketones Urine Occult Blood Urine Nitrate Urine Bilirubin Urine Urobilinogen Ur Leukocyte Esterase Urine RBC Urine WBC Ur Squamous Epith Cells Urine Bacteria Ur Culture Indicated? Vol Urine Centrifuged Salicylates < 1.0 U Opiates 300ng/mL cut Ur Oxycodone Screen Urine Methadone Screen Acetaminophen < 10 Ur Barbiturates Screen U Tricyclic Antidepress Ur Phencyclidine Scrn Ur Amphetamines Screen U Methamphetamines Scrn Ur MDMA Scrn (Ecstasy) U Benzodiazepines Scrn Urine Cocaine Screen U Marijuana (THC) Screen Urine Specific [place] Ethyl Alcohol < 10 Ur Creatinine 12/18/23 12/18/23 05:05 05:05 WBC RBC Hgb Hct MCV MCH MCHC RDW Plt Count Neut % (Auto) Lymph % (Auto) [place] % (Auto) Eos % (Auto) Baso % (Auto) Neut # (Auto) Lymph # (Auto) [place] # (Auto) Eos # (Auto) Baso # (Auto) PT INR APTT Sodium Potassium Chloride Carbon Dioxide BUN Creatinine Estimated GFR BUN/Creatinine Ratio Glucose Lactate Calcium Total Bilirubin AST ALT Alkaline Phosphatase Ammonia Total Protein Albumin Globulin Albumin/Globulin Ratio TSH Free T4 Prolactin Urine Color Yellow Urine Appearance Clear Urine pH 7.5 TNP Ur Specific [place] 1.010 Urine Protein Negative Urine Glucose (UA) Negative Urine Ketones Negative Urine Occult Blood Negative Urine Nitrate Negative Urine Bilirubin Negative Urine Urobilinogen 1.0 Ur Leukocyte Esterase Negative Urine RBC None seen Urine WBC None seen Ur Squamous Epith Cells None seen Urine Bacteria None seen Ur Culture Indicated? Cult not indicated Vol Urine Centrifuged 10ml (spun) Salicylates U Opiates 300ng/mL cut Negative Ur Oxycodone Screen Negative Urine Methadone Screen Negative Acetaminophen Ur Barbiturates Screen Negative U Tricyclic Antidepress Negative Ur Phencyclidine Scrn Negative Ur Amphetamines Screen Negative U Methamphetamines Scrn Negative Ur MDMA Scrn (Ecstasy) Negative U Benzodiazepines Scrn Negative Urine Cocaine Screen Negative U Marijuana (THC) Screen Negative Urine Specific [place] TNP Ethyl Alcohol Ur Creatinine TNP Assessment & Plan Assessment & Plan narrative: 1. Acute encephalopathy (Herpes encephalitis), present on admission and active. -continue acyclovir and monitor mental status. -droplet precautions. Full code Admitted to inpatient status, a 2 midnight medical necessity for hospital care is anticipated. Time Spent With Patient Time with patient: 30 to 49 minutes with 50% spent counseling/coordinating care Quality MIPS - Admit I confirm the patient?s Advance Care Plan is present, Code status is documented, Surrogate decision maker is in patient?s record [If Yes, STOP here]: Yes MIPS - Meds 'Current medications' to include all prescriptions, [id number] products, herbals, cannabis/cannabidiol products, and vitamin/mineral/dietary (nutritional) supplements. I have utilized all available resources to obtain, update, or review the patient?s current medications. [If Yes, STOP here]: Yes
--- NOTE | 2023-12-18 13:07 | P.PN_ITS ---
Subjective Subjective Date Patient Seen: 12/18/23 Time Patient Seen: 12:48 Interval history: atsp to assist with spinal tap for w/u of possible encephalitis/meningitis ER doc unable to obtain samples pt conversant, yet twitching throughout procedure, initial attempt sitting at approx L2/3 then L5/S1 unable to obtain csf due to inability to reliably pass 25 and/or 22 g spinal needles secondary to pt movement and positioning challenges second attempt in left lateral position successful with 22 g needl and lateral approach at approx L2/3. slow return of clear csf at full 3.5 inch depth. 4 tubes collected with 1 ml each. ER staff to label and process 25 ml total [place]ido local used at each a attempt location sterile technique with chloraprep twice and two trays used discussed procedure with ER doc. Pt thankful at completion 12:10-13:05 Exam Vital Signs (past 8 hours): - 12/18/23 05:09 12/18/23 05:21 12/18/23 05:21 Pulse Rate 63 71 Respiratory Rate Blood Pressure 143/91 H Pulse Oximetry 96 100 Oxygen Delivery Method Room Air 12/18/23 06:44 12/18/23 06:44 12/18/23 07:43 Pulse Rate 71 Respiratory Rate Blood Pressure 170/98 H Pulse Oximetry 98 98 Oxygen Delivery Method Room Air 12/18/23 07:44 12/18/23 07:44 12/18/23 10:03 Pulse Rate 72 73 Respiratory Rate 18 Blood Pressure 162/83 H 137/77 Pulse Oximetry 100 97 Oxygen Delivery Method Room Air Oxygen Delivery Method Room Air Objective Labs 12/18/23 03:47 12/18/23 03:47 Labs: Laboratory Results - last 24 hr 12/18/23 12/18/23 12/18/23 03:47 04:29 04:34 WBC 10.9 RBC 4.32 L Hgb 14.3 Hct 40.4 L MCV 93.6 MCH 33.2 MCHC 35.5 RDW 13.3 Plt Count 390 Neut % (Auto) 78.9 H Lymph % (Auto) 13.3 L [place] % (Auto) 6.9 Eos % (Auto) 0.3 L Baso % (Auto) 0.6 Neut # (Auto) 8600 H Lymph # (Auto) 1400 [place] # (Auto) 800 Eos # (Auto) 0 Baso # (Auto) 100 PT 11.7 INR 1.0 APTT 35 Sodium 133 L Potassium 3.3 L Chloride 98 Carbon Dioxide 28 BUN 17 Creatinine 0.93 Estimated GFR > 60 BUN/Creatinine Ratio 18.3 Glucose 111 H Lactate 1.0 Calcium 9.2 Total Bilirubin 1.1 AST 53 ALT 51 H Alkaline Phosphatase 103 Ammonia < 9 L Total Protein 7.8 Albumin 4.7 Globulin 3.1 Albumin/Globulin Ratio 1.5 TSH 6.89 H Free T4 1.08 Prolactin 14.7 Urine Color Urine Appearance Urine pH Ur Specific [place] Urine Protein Urine Glucose (UA) Urine Ketones Urine Occult Blood Urine Nitrate Urine Bilirubin Urine Urobilinogen Ur Leukocyte Esterase Urine RBC Urine WBC Ur Squamous Epith Cells Urine Bacteria Ur Culture Indicated? Vol Urine Centrifuged Salicylates < 1.0 U Opiates 300ng/mL cut Ur Oxycodone Screen Urine Methadone Screen Acetaminophen < 10 Ur Barbiturates Screen U Tricyclic Antidepress Ur Phencyclidine Scrn Ur Amphetamines Screen U Methamphetamines Scrn Ur MDMA Scrn (Ecstasy) U Benzodiazepines Scrn Urine Cocaine Screen U Marijuana (THC) Screen Urine Specific [place] Ethyl Alcohol < 10 Ur Creatinine 12/18/23 12/18/23 05:05 05:05 WBC RBC Hgb Hct MCV MCH MCHC RDW Plt Count Neut % (Auto) Lymph % (Auto) [place] % (Auto) Eos % (Auto) Baso % (Auto) Neut # (Auto) Lymph # (Auto) [place] # (Auto) Eos # (Auto) Baso # (Auto) PT INR APTT Sodium Potassium Chloride Carbon Dioxide BUN Creatinine Estimated GFR BUN/Creatinine Ratio Glucose Lactate Calcium Total Bilirubin AST ALT Alkaline Phosphatase Ammonia Total Protein Albumin Globulin Albumin/Globulin Ratio TSH Free T4 Prolactin Urine Color Yellow Urine Appearance Clear Urine pH 7.5 TNP Ur Specific [place] 1.010 Urine Protein Negative Urine Glucose (UA) Negative Urine Ketones Negative Urine Occult Blood Negative Urine Nitrate Negative Urine Bilirubin Negative Urine Urobilinogen 1.0 Ur Leukocyte Esterase Negative Urine RBC None seen Urine WBC None seen Ur Squamous Epith Cells None seen Urine Bacteria None seen Ur Culture Indicated? Cult not indicated Vol Urine Centrifuged 10ml (spun) Salicylates U Opiates 300ng/mL cut Negative Ur Oxycodone Screen Negative Urine Methadone Screen Negative Acetaminophen Ur Barbiturates Screen Negative U Tricyclic Antidepress Negative Ur Phencyclidine Scrn Negative Ur Amphetamines Screen Negative U Methamphetamines Scrn Negative Ur MDMA Scrn (Ecstasy) Negative U Benzodiazepines Scrn Negative Urine Cocaine Screen Negative U Marijuana (THC) Screen Negative Urine Specific [place] TNP Ethyl Alcohol Ur Creatinine TNP PFSH Social History Smoking Status: Never smoker
[2023-12-18] MEDS: ACYCLOVIR 1,000 MG in DEXTROSE 5% IN WATER 250 ML 250 MG IV ×2 (13:12→21:22)
[2023-12-18] MEDS: DEXAMETHASONE 10 MG/ML VIAL IV (13:12)
[2023-12-18] MEDS: LIDOCAINE 1% 20 ML 40 ML (13:24)
[2023-12-18] MEDS: LIDOCAINE 1% 20 ML (13:24)
[2023-12-18 13:38] LABS: Appearance CSF Clear (Clear); CSF Tube Number 3; CSF Tube Volume 4.0 mL; Color CSF Colorless (Colorless)
[2023-12-18 13:40] LABS: Red Blood Cell CSF 9 RBC /uL; White Blood Cell CSF 3 MONO/uL (0-5)
[2023-12-18 13:44] LABS: Glucose CSF 61 mg/dL (40-70); Total Protein CSF 61 mg/dL (12-60)
[2023-12-18 13:49] LABS: Mononuclear WBC CSF 100 %; Polynuclear WBC CSF 0 %
[2023-12-18 14:53] LABS: Cryptococcus neoformans/gattii Not Detected (Not Detect); Enterovirus Not Detected (Not Detect); Escherichia coli K1 Not Detected (Not Detect); Haemophilus influenzae Not Detected (Not Detect); Herpes simplex virus 1 Not Detected (Not Detect); Herpes simplex virus 2 Detected (Not Detect); Human herpesvirus 6 Not Detected (Not Detect); Human parechovirus Not Detected (Not Detect); Listeria monocytogenes Not Detected (Not Detect); Neisseria meningitidis Not Detected (Not Detect); Streptococcus agalactiae Not Detected (Not Detect); Streptococcus pneumoniae Not Detected (Not Detect); Varicella Zoster Virus Not Detected (Not Detecte)
[2023-12-18] MEDS: SODIUM CHLORIDE 0.9% 1,000 ML 100 ML IV (14:54)
[2023-12-18] MEDS: cefTRIAXone 2,000 MG in SODIUM CHLORIDE 0.9% 100 ML 200 MG IV (14:54)
[2023-12-18] MEDS: HEPARIN 5,000 UNIT/ML VIAL 5000 UNIT SUBCUT (21:22)
[2023-12-19] MEDS: SODIUM CHLORIDE 0.9% 1,000 ML 100 ML IV ×2 (00:26→12:06)
[2023-12-19] MEDS: PRAMIPEXOLE 0.25 MG TABLET 1 MG PO ×2 (00:26→20:31)
[2023-12-19 04:52] LABS: Add Manual Diff / Slide Review NO; Basophils Absolute Auto 0 /uL (0-100); Basophils Percent Auto 0.2 % (0-2); Eosinophils Absolute Auto 0 /uL (0-450); Eosinophils Percent Auto 0.1 % (2-4); Hematocrit 35.8 % (41-53); Hemoglobin 12.9 g/dL (13.5-17.5); Lymphocytes Absolute Auto 800 /uL (1100-4500); Lymphocytes Percent Auto 9.1 % (25-40); Mean Corpuscular HGB Conc 36.1 % (30-36); Mean Corpuscular Hemoglobin 33.5 PG (26-34); Mean Corpuscular Volume 92.9 fL (80-100); Monocytes Absolute Auto 500 /uL (0-900); Monocytes Percent Auto 5.3 % (3-14); Neutrophils Absolute Auto 7700 /uL (1500-7000); Neutrophils Percent Auto 85.3 % (50-75); Platelet Count 343 X10^3/uL (150-400); Red Blood Cell Count 3.85 X10^6/uL (4.5-5.9)
[2023-12-19 05:03] LABS: BUN Creatinine Ratio 23.9 (6-22); Blood Urea Nitrogen 17 mg/dL (9-20); Calcium 8.4 mg/dL (8.4-10.2); Carbon Dioxide 23 mmol/L (22-32); Chloride 101 mmol/L (98-107); Estimated Glomerular Filt Rate > 60 mL/min (>60); Glucose 115 mg/dL (80-110); HEMOLYSIS < 15 (0-50); Potassium 3.6 mmol/L (3.4-5.1); Sodium 131 mmol/L (137-145)
[2023-12-19] MEDS: ACYCLOVIR 1,000 MG in DEXTROSE 5% IN WATER 250 ML 250 MG IV ×3 (05:17→20:30)
[2023-12-19 05:50] VITALS: BP 128/76; PULSE 64; RESP 17; TEMP 36.4; O2SAT 98
--- NOTE | 2023-12-19 08:15 | PM.PN.1 ---
Subjective Subjective Interval history: Summary: He was doing well but does noticed that he was confused and feels that he became confused sometime late last night. He lives in [facility] and took the [employer] over to libertarian. He was found driving around aimlessly by the police at 4:00 a.m.. He was brought to the hospital. There he left the emergency department wandered out towards the helipad and again was confused. He denies headache. No recent fevers, chills or antecedent illness. He was otherwise healthy and takes no chronic medications. He drinks socially, denies any illicit drug use. He lives with a roommate in [facility]. He was started on acyclovir in the emergency department for encephalitis. CSF HSV PCR positive. S: He was feeling much better today, but is still slightly confused. No headache. No numbness or weakness of arms or legs. He was better recall of the last couple of days today. No fevers. Exam Vital Signs (past 8 hours): - 12/19/23 05:50 Temperature 97.6 F Pulse Rate 64 Respiratory Rate 17 Blood Pressure 128/76 Pulse Oximetry 98 Oxygen Flow Rate 0 Oxygen Delivery Method Room Air Oxygen Flow Rate 0 Narrative Exam Narrative: NAD, alert and oriented. Fluent speech. Mentation is better, oriented x3. He still is a little bit fuzzy when covering recent events. Lungs are clear, normal rate and effort. Heart is regular, no murmur gallop or rub. Abdomen is soft, non distended. Extremities are free of edema. Objective Labs 12/19/23 04:26 12/19/23 04:26 Labs: Laboratory Results - last 24 hr 12/18/23 12/18/23 12/19/23 04:34 13:00 04:26 WBC 9.0 RBC 3.85 L Hgb 12.9 L Hct 35.8 L MCV 92.9 MCH 33.5 MCHC 36.1 H RDW 13.0 Plt Count 343 Neut % (Auto) 85.3 H Lymph % (Auto) 9.1 L [place] % (Auto) 5.3 Eos % (Auto) 0.1 L Baso % (Auto) 0.2 Neut # (Auto) 7700 H Lymph # (Auto) 800 L [place] # (Auto) 500 Eos # (Auto) 0 Baso # (Auto) 0 Sodium 131 L Potassium 3.6 Chloride 101 Carbon Dioxide 23 BUN 17 Creatinine 0.71 Estimated GFR > 60 BUN/Creatinine Ratio 23.9 H Glucose 115 H Calcium 8.4 Free T4 1.08 CSF Tube Number 3 CSF Volume 4.0 ml CSF Appearance Clear CSF Color Colorless CSF WBC 3 CSF RBC 9 CSF Mononuclear WBCs 100 CSF Polynuclear WBCs 0 CSF Glucose 61 CSF Total Protein 61 H CSF C.neoform/gat PCR Not detected CSF CMV DNA (PCR) Not detected CSF Enterovirus (PCR) Not detected CSF E. coli (PCR) Not detected CSF H. influenzae (PCR) Not detected CSF HSV I (PCR) Not detected CSF HSV II (PCR) Detected CSF HHV 6 (PCR) Not detected CSF L.monocytogenes PCR Not detected CSF N. meningitidis PCR Not detected CSF Parechovirus (PCR) Not detected CSF S. agalactiae (PCR) Not detected CSF S. pneumoniae (PCR) Not detected CSF VZV (PCR) Not detected PFSH Social History household members: spouse Smoking Status: Never smoker alcohol intake: never Assessment & Plan Assessment & Plan narrative: 1. Acute encephalopathy (Herpes encephalitis), present on admission and active. -continue acyclovir and monitor mental status. 2. HTN, present on admission and active. 3. Depression, present on admission and active. PLAN: -continue IV acyclovir, possible conversion to oral in the next 1-2 days pending mental status. -resume all home medications today. -out of bed, increase activity. -droplet precautions. MARTÍN: 12/19-2. Full code Admitted to inpatient status, a 2 midnight medical necessity for hospital care is anticipated.
[2023-12-19 08:28] VITALS: BP 103/61; PULSE 68; RESP 16; TEMP 36.6; O2SAT 99
[2023-12-19] MEDS: HEPARIN 5,000 UNIT/ML VIAL 5000 UNIT SUBCUT ×2 (08:30→20:30)
[2023-12-19] MEDS: atenoloL 25 MG TABLET PO (09:54)
[2023-12-19 09:55] VITALS: BP 103/61; PULSE 68
[2023-12-19] MEDS: CHLORTHALIDONE 25 MG TABLET PO (09:55)
[2023-12-19] MEDS: ATORVASTATIN 20 MG TABLET 80 MG PO (09:55)
[2023-12-19] MEDS: lisinopriL 20 MG TABLET 40 MG PO (09:55)
[2023-12-19] MEDS: CITALOPRAM 10 MG TABLET 20 MG PO (09:55)
[2023-12-19] MEDS: buPROPion XL 150 MG TAB PO (09:55)
--- NOTE | 2023-12-19 11:38 | PT.IIE ---
Physical Therapy Inpatient Evaluation/Re-Eval M1 PT/OT-IP Prior Functional Status Start: 12/19/23 10:44 Freq: NEEDED Status: Active Protocol: Document 12/19/23 11:00 MB (Rec: 12/19/23 11:38 MB [id number]) Medical Review Prior Functional Status Medical History Reviewed Yes Communication Unsure basline diet and communication, likely WNLs Mobility and Gait Pt is unable to state d/t confusion. 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 Pt counts out to 14 and states he has two rails Additional Social History Comment Unable to state baseline home environment, equipment. States he lives in [place] and on [place] and that he was headed to [place] when he was pulled over. He lists 6 people's names when asked who he lives with at home. M2 PT-IP Current Condition Start: 12/19/23 10:44 Freq: NEEDED Status: Active Protocol: Document 12/19/23 11:00 MB (Rec: 12/19/23 11:38 MB [id number]) Physical Therapy Current Condition Current Condition Evaluation Date 12/19/23 Treatment Diagnosis AMS, herpatic encephalopathy M3 PT-IP Subjective Start: 12/19/23 10:44 Freq: NEEDED Status: Active Protocol: Document 12/19/23 11:00 MB (Rec: 12/19/23 11:38 MB [id number]) Subjective Physical Therapy Visit Type Type Initial Evaluation Visit Start Time 11:00 Visit Stop Time 11:30 Number of SIGNAL OPERATOR TECHNICAL Visits 0 Physical Therapy Visit Comments Patient Comments Pt pleasantly confused and conversant. Therapy Pain Assessment Pain When Pain Assessed At Rest Pain Present Pain Present Denied Pain M4 PT-IP Mobility and Gait Start: 12/19/23 10:44 Freq: NEEDED Status: Active Protocol: Document 12/19/23 11:00 MB (Rec: 12/19/23 11:38 MB [id number]) PT-Bed Mobility Assessment Supine to Sit Supine to Sit Independent Sit to Supine Sit to Supine Independent Scooting Scooting to Edge of Bed Independent Scooting Up and Down in Bed Independent PT-Transfer Assessment Sit to and From Stand Sit to and from Stand Standby Assistance Equipment Transfer Assistive Device Gait Belt Orthotic/Prosthetic Devices or Brace: No Transfers Transfer Technique BR and chair Transfer Ability Level of Assist Standby Assistance Comments Mobility Comments Moves well, SBA only d/t confusion Gait Assessment Gait Gait Assistance Required: Standby Assistance Distance (Feet) 150 Assistive Devices Assistive Device Gait Belt Orthotic/Prosthetic Devices or Brace: No Gait Deviations General Gait Pattern Within Normal Limits Factors Limiting Gait Function Factors Limiting Gait Function Poor Safety Awareness Comments Gait Comments SBA only d/t confusion, otherwise, moves well and no signs of imbalance. Superv and cues for urinating when standing at commode d/t pt reaching for spray bottle above head Stair Climbing Assessment Evaluation Level of Assist On Stairs Standby Assistance Devices Stair Climbing Assistive Devices Left Railing,Right Railing Technique/Endurance Stair Climbing Direction Ascend and Descend Stair Climbing Technique Step Over Step Number of Steps Climbed 3 Query Text: Stair Climbing Set # Repetitions (reps) 1 Comments Stair Climbing Comments SBA/superv only d/t confusion, otherwise, moves well PT-Balance Assessment Sitting Balance and Reactions Static Sitting Balance Ability Normal Standing Balance and Reactions Static Standing Balance Ability Normal Dynamic Standing Balance Ability Good M5 PT-IP Objective Assessments Start: 12/19/23 10:44 Freq: NEEDED Status: Active Protocol: Document 12/19/23 11:00 MB (Rec: 12/19/23 11:38 MB [id number]) Orientation Orientation/Cognition Level of Alertness Confusional State Orientation Name,Age,Birthday,Month,Year, Day of Week,Place Language Function Ability No Deficits Noted Safety Awareness Decreased Safety Awareness Memory Description Short Term Impaired,Retirement Impaired Gross Range of Motion Upper Extremity ROM Assessment Within Functional Limits Lower Extremity ROM Assessment Within Functional Limits Strength Upper Extremity Strength Assessment Within Functional Limits Lower Extremity Strength Assessment Within Functional Limits Other Assessments Other Other Assessments SLUMS score is 13 M6 PT-IP Treatment Start: 12/19/23 10:44 Freq: NEEDED Status: Active Protocol: Document 12/19/23 11:00 MB (Rec: 12/19/23 11:38 MB [id number]) Physical Therapy Treatment Education Education Provided Safety M7 PT-IP Assessment and Plan Start: 12/19/23 10:44 Freq: NEEDED Status: Active Protocol: Document 12/19/23 11:00 MB (Rec: 12/19/23 11:38 MB [id number]) PT Summary Assessment and Plan Potential Rehabilitation Potential Good Status of Condition at Evaluation Evolving Summary Impairments Cognition Assessment Summary Pt is a 68 y/o male presenting with AMS and found to have post-herpatic delirium per rounds today. His SLUMS score is 13. He moves well and is only SBA d/t confusion. He is able to gait train in hallways and perform steps. No acute PT needs and recommend up with superv. Frequency of Treatment Frequency Of Treatment Discharge Weight Bearing Status Weight Bearing Status Weight Bear as Tolerated Recommendations To Nursing Amount of Assist Needed Standby Assistance Discharge Recommendations PT Discharge Recommendations Home with 24/7 Assist Available Transportation Needs at Discharge Private Vehicle
--- NOTE | 2023-12-19 12:48 | CM.DANOTE ---
Initial DCP Assessment Visit Note Reviewed EMR and team rounds for status updates. Met with pt at bedside to introduce self and role, pt was found to be somnolent, still somewhat confused, however was able to discuss his preference to d/c back home once he's medically stable. He is planning to drive himself, and will likely need a medical priority boarding pass if he cannot secure a reservation tomorrow for trip home. Pt resides independently in his own home with his spouse on [facility] [facility] [address] [facility]. His is a teacher and works in [place], she will be returning home this coming week and can assist pt should he have any further episodes of altered mental status secondary to herpes encephalopathy. Payor: JASMYN Out of [facility] PCP: Deirdre Morales Pt is a 68 year-old M who was stopped by police here in [place] for driving too slowly. He presented to the officers as being confused w/altered mental status. EMS was called and pt was then transferred to the ED for further evaluation. Pt had been over here for a friend's democrat, he denied any drug or alcohol use. Pt did share that he had been up for over 24-hours straight on his computer and felt that when he was pulled over he felt disoriented. Pt was started on IV fluids and acyclovir for shingles flare, no other symptoms or lesions were noted. DCP will continue to follow and assist with any further evolving needs prior to his d/c back home. No CM needs are anticipated at this time other than possibly a ferry pass. Discharge Planning/Care Management CM Discharge Assessment Start: 12/19/23 12:46 Freq: Status: Active Protocol: Document 12/19/23 12:46 DPL (Rec: 12/19/23 12:48 DPL [id number]) Discharge Planning Assessment Assigned Employment Consultant [employer] Advance Directives? No History Provided By Patient,Medical Record Has Patient been admitted in last 30 No days? Prior Living Arrangements House Household Members spouse Type of transporation used prior to Drives own vehicle admit Independent with ADL's Yes Is patient alert and oriented? Yes Comment N/A Caregiver for Another No Comment N/A Comment No identified home d/c needs at this time. Barriers to Discharge No Discharge Plan Home Transportation Arrangement Self Referrals Initiated None needed Whiteboard Updated in Patient Room with Yes name and ext. # of Employment Consultant Review Status In Process Please Provide Date Initial DC 12/19/23 Assessment Was Performed
[2023-12-19 19:00] VITALS: BP 111/63; PULSE 68; RESP 18; TEMP 37.7; O2SAT 98
[2023-12-20] MEDS: SODIUM CHLORIDE 0.9% 1,000 ML 100 ML IV (00:23)
[2023-12-20 04:07] LABS: Add Manual Diff / Slide Review NO; Basophils Absolute Auto 0 /uL (0-100); Basophils Percent Auto 0.6 % (0-2); Eosinophils Absolute Auto 0 /uL (0-450); Eosinophils Percent Auto 0.9 % (2-4); Hematocrit 33.3 % (41-53); Hemoglobin 11.9 g/dL (13.5-17.5); Lymphocytes Absolute Auto 1700 /uL (1100-4500); Lymphocytes Percent Auto 34.7 % (25-40); Mean Corpuscular HGB Conc 35.7 % (30-36); Mean Corpuscular Hemoglobin 33.5 PG (26-34); Mean Corpuscular Volume 93.7 fL (80-100); Monocytes Absolute Auto 400 /uL (0-900); Monocytes Percent Auto 8.3 % (3-14); Neutrophils Absolute Auto 2700 /uL (1500-7000); Neutrophils Percent Auto 55.5 % (50-75); Platelet Count 285 X10^3/uL (150-400); Red Blood Cell Count 3.56 X10^6/uL (4.5-5.9); Red Cell Distribution Width 12.8 % (11.6-14.8); White Blood Cell Count 4.8 X10^3/uL (4.5-11.0)
[2023-12-20 04:21] LABS: BUN Creatinine Ratio 17.8 (6-22); Blood Urea Nitrogen 13 mg/dL (9-20); Calcium 7.9 mg/dL (8.4-10.2); Carbon Dioxide 26 mmol/L (22-32); Chloride 101 mmol/L (98-107); Estimated Glomerular Filt Rate > 60 mL/min (>60); Glucose 100 mg/dL (80-110); HEMOLYSIS < 15 (0-50); Potassium 3.4 mmol/L (3.4-5.1); Sodium 131 mmol/L (137-145)
[2023-12-20] MEDS: ACYCLOVIR 1,000 MG in DEXTROSE 5% IN WATER 250 ML 250 MG IV (04:54)
[2023-12-20 08:53] VITALS: BP 136/77; PULSE 68
[2023-12-20] MEDS: lisinopriL 20 MG TABLET 40 MG PO (08:53)
[2023-12-20] MEDS: atenoloL 25 MG TABLET PO (08:53)
[2023-12-20] MEDS: buPROPion XL 150 MG TAB PO (08:53)
[2023-12-20] MEDS: HEPARIN 5,000 UNIT/ML VIAL 5000 UNIT SUBCUT (08:53)
[2023-12-20] MEDS: CHLORTHALIDONE 25 MG TABLET PO (08:53)
[2023-12-20] MEDS: CITALOPRAM 10 MG TABLET 20 MG PO (08:53)
[2023-12-20] MEDS: ATORVASTATIN 20 MG TABLET 80 MG PO (08:53)
--- NOTE | 2023-12-20 10:15 | P.DS_ITS ---
History of Present Illness History of Present Illness Date Patient Seen: 12/20/23 Time Patient Seen: 10:15 Chief complaint: AMS Narrative: From ED provider: 68-year-old male driving slowly, was trailed by police, eventually stopped, seemed confused, Breathalyzer negative, EMS called, transferred here for further evaluation of confusion. Patient denies drug or alcohol use. Patient states that he has been up since 4:00 a.m. yesterday working, and then was driving, got disoriented. Denies similar symptoms before. No new medications, no change in medications. No shaking seizure activity, no incontinence of urine or stool. No focal weakness to face arm or leg. Numbness or tingling symptoms. No visual complaints. No pain to head, neck, chest, abdomen and pelvis, upper extremities, lower extremities. In the ED a LP was performed: CSF pos WBC's and PCR positive for HSV 2. Acyclovir started. S: He was doing well but does noticed that he was confused and feels that he became confused sometime late last night. He lives in [facility] and took the [employer] over to republican. He was found driving around aimlessly by the police at 4:00 a.m.. He was brought to the hospital. There he left the emergency department wandered out towards the [facility] and again was confused. He denies headache. No recent fevers, chills or antecedent illness. He was otherwise healthy and takes no chronic medications. He drinks socially, denies any illicit drug use. He lives with a roommate in [facility]. He was started on acyclovir in the emergency department for encephalitis. Discharge Providers Provider Date of admission: 12/18/23 11:09 Discharge Date: 12/20/23 Primary care physician: Deirdre Morales PA-C Consults: 12/19/23 10:19 Consult to Physical Therapy Evaluate & Treat Comment: Physician Instructions: Evaluate and Treat Discharge provider: Arben Sneed DO Summary Hospital Course Discharge Diagnosis: 1. Acute encephalopathy due to presumed herpes encephalitis, present on admission and active. 2. HTN, present on admission and active. 3. Depression, present on admission and active. 4. Mild asymptomatic hyponatremia. Hospital Course: This is a 68 year old male with a PMH of HTN, depression who was found near his home driving extremely slowly and seemed confused with police, with negative breathalizer and was sent to the ER for evaluation of confusion. Infectious etiologies were evaluated, he had no evidence for pneumonia, UTI. There were no significant metabolic abnormalities though sodium was slightly low at 133. LP was performed, which showed 3 WBC, 61 total protein, and glucose of 61 as well. 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 He was started on IV acyclovir. He had no fever over the course of admission. His confusion did improve, and his memory did improve quite a bit but he did not completely return to his previous normal state per family that were available for additional history. MRI was performed and did not show any inflammation or acute ischemia either. Given positive viral panel, and improvement he was continued on oral valacyclovir on discharge. The patient adamantly wanted to return home on the day of discharge. His memory had improved quite a bit and he did seem to comprehend the risks and benefits of discharge. It is not entirely clear if his presentation was due to HSV encephalitis given above results, or acute delirium in the setting of lack of sleep and possible progression of cognitive impairment (slow history of confusion has been reported by supplemental family to staff). Patient's brother agreed to watch the patient for a couple of days, and patient is going to [place] after discharge. 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 Time Spent with Patient Time spent: Greater than 30 minutes Exam Vital Signs (past 8 hours): - 12/20/23 08:53 Pulse Rate 68 Blood Pressure 136/77 Oxygen Delivery Method Room Air Oxygen Flow Rate 0 Narrative Exam Narrative: NAD, alert and oriented. Fluent speech. Mentation is better, oriented x3. He is able to recall recent events today, continued improvement per staff. Lungs are clear, normal rate and effort. Heart is regular, no murmur gallop or rub. Abdomen is soft, non distended. Extremities are free of edema. Objective Labs 12/20/23 03:56 12/20/23 03:56 Labs: Laboratory Results - last 24 hr 12/20/23 03:56 WBC 4.8 RBC 3.56 L Hgb 11.9 L Hct 33.3 L MCV 93.7 MCH 33.5 MCHC 35.7 RDW 12.8 Plt Count 285 Neut % (Auto) 55.5 D Lymph % (Auto) 34.7 D [place] % (Auto) 8.3 Eos % (Auto) 0.9 L Baso % (Auto) 0.6 Neut # (Auto) 2700 Lymph # (Auto) 1700 [place] # (Auto) 400 Eos # (Auto) 0 Baso # (Auto) 0 Sodium 131 L Potassium 3.4 Chloride 101 Carbon Dioxide 26 BUN 13 Creatinine 0.73 Estimated GFR > 60 BUN/Creatinine Ratio 17.8 Glucose 100 Calcium 7.9 L PFSH Social History household members: spouse Smoking Status: Never smoker alcohol intake: never Discharge Plan Discharge Plan Patient Disposition: Home Provider Discharge Comment: You were admitted to the hospital with HSV encephalitis. Continue antiviral treatment. Follow up with PCP ideally this week. No medication changes are recommended. Discharge orders & Medications Prescriptions: New valacyclovir 1 gram tablet 1,000 mg PO TID 10 Days Qty: 30 0RF Continued chlorthalidone 25 mg tablet 25 mg PO DAILY atorvastatin 80 mg tablet 80 mg PO DAILY bupropion HCl 150 mg tablet extended release 24 hr 150 mg PO QAM citalopram 20 mg tablet 20 mg PO DAILY atenolol 25 mg tablet 25 mg PO DAILY pramipexole 1 mg tablet 1 mg PO BEDTIME lisinopril 40 mg tablet 40 mg PO DAILY Follow up/Referrals: Deirdre Morales PA-C [Primary Care Provider] - Activity Restrictions/Additional Instructions: Confusion, after having been working on computer for 24 hours straight, brought in by EMS, field police Breathalyzer reportedly negative, denied use of drugs or alcohol. CT head study negative. Lab testing did not show any acute infections or electrolyte disorders or hypothyroidism or Toxicology causes of symptoms. By history sounds like you might have been confused due to extreme fatigue from prolonged lack of sleep due to continued working. You felt better with some sleep Diet/Activity/Treatments Diet: Diet as Tolerated and Regular Activity: As tolerated Visit Report/Discharge Packet Instructions: Alzheimer's Disease and Non-Alzheimer's Dementia (Alternative Therapy), DI for Altered Mental Status, Dementia: Know the Warning Signs Stand Alone Forms: Patient Portal/API, Stroke Signs & Symptoms Discharge Data Primary Care Provider: Deirdre Morales
[2023-12-20 10:24] VITALS: BP 114/95; PULSE 65; RESP 16; TEMP 36.7; O2SAT 100
--- NOTE | 2023-12-20 13:48 | CM.DPC ---
DCP Discharge Home Per MD, pt medically stable to discharge home today and per ID MD no indications that remaining on IV virals for a couple weeks would be beneficial so can d/c on PO meds. Per RN, pt's brother flew in from [place] yesterday and niece are both bedside and plan to transport pt with them down to [place] for ongoing monitoring as pt remains somewhat confused. Family plans to help determine if pt might have some ongoing memory issues/maybe beginning stages of mild dementia and help determine LTC plan for patient if he does not cognitively clear. They confirm that pt's ex- is pt's DPOA and RN left her a msg regarding pt discharge today. Bonny Babb MSW
== END 2023-12-20 12:45 | disposition home or self-care (01) | DRG 99 ==
LOC: ED 08:33 → AC 11:09
PROVIDERS: Emergency Medicine; Admitting Provider Hospitalist; Emergency Provider Emergency Medicine; PCP Physician Assistant; Referring Provider Emergency Medicine; Visit Provider Hospitalist
DX: B10.09 Other human herpesvirus encephalitis (principal); I10 Essential (primary) hypertension; F32.A Depression, unspecified
CPT/HCPCS: 36415; 62270; 70450; 70496; 70498; 70551; 80048; 80053; 80305; 80320; 80329; 81001; 82140; 82945; 83605; 84146; 84157; 84439; 84443; 85025; 85610; 85730; 87040; 87070; 87086; 87205; 87798; 89051; 96365; 96366; 96375; 97161; 97535; 99284; G0480; J0696; J1100; J1644; J2060; Q9967